=== PATIENT | female | born 1980 | race Caucasian/White ===

== ENCOUNTER 2019-09-26 10:56 | Emergency (ER) | payer MEDICAID ==
[2019-09-26] MEDS ORDERED: Alum Hydrox/Mag Hydrox/Simeth 30 ML, Lidocaine 2% 15 ML PO STA ×2 (12:04)
--- NOTE | 2019-09-26 12:11 | EDM.PDOC ---
ED HPI GENERAL MEDICAL PROBLEM - General Chief Complaint: Chest Pain Stated Complaint: CHEST PAINS Time Seen by Provider: 09/26/19 11:39 Source of Information: Reports: Patient History Limitations: Reports: No Limitations - History of Present Illness INITIAL COMMENTS - FREE TEXT/NARRATIVE: Ms. Donato is a very pleasant 39-year-old woman with a past medical history significant for PTSD and migraines, who now presents to the ED stating that she developed midline lower chest and epigastric pain yesterday afternoon while lounging. She describes the pain as "tender" and stabbing, shooting". The pain does not radiate, and she has not identified any modifiers. She was able to sleep overnight, but the pain was still there this morning. She then took her daughter to school, and developed right jaw pain, dyspnea, weakness, and dizziness. Here in the ED, the patient is found to be hemodynamically stable, afebrile, saturating 99% on room air The patient states that she has had chest pain in the past, but the character was different. She reports no limits to exertion, such as chest pain or dyspnea. The patient did not take any [id number] or home remedies either yesterday or today. The patient states that she had a cluster of migraines about 2 weeks ago, otherwise, she has not had any recent fever, chills, cough, dyspnea, chest pain , palpitations, nausea, vomiting, constipation, diarrhea, abdominal pain, urinary symptoms, recent weight gain or weight loss, recent bloody bowel movements or black bowel movements, recent joint aches, headaches, or rashes. The patient's PCP is ANDRES Jackson. She did not receive an influenza vaccine this season, but agreed to receive one here today. Middle Chest Pain Score (Numeric/FACES): 5 - Related Data Allergies Allergy/AdvReac Type Severity Reaction Status Date / Time codeine Allergy Cannot Verified 09/26/19 11:35 Remember metronidazole [From Flagyl] Allergy Cannot Verified 09/26/19 11:35 Remember ranitidine Allergy Cannot Verified 09/26/19 11:35 Remember Home Meds: Home Meds ALPRAZolam [Xanax] 0.5 mg PO BID PRN 09/26/19 [History] Acetaminophen/HYDROcodone [Glencoe 325-5 MG] 1 - 2 tab PO Q6H PRN #20 tablet 09/26 [Rx] Escitalopram Oxalate 5 mg PO DAILY 09/26/19 [History] Ondansetron [Zofran ODT] 1 tab PO Q8H PRN #10 tab.dis 09/26/19 [Rx] Prazosin [Minpress] 1 mg PO BEDTIME 09/26/19 [History] Past Medical History Neurological History: Reports: Migraines Psychiatric History: Reports: PTSD - Past Surgical History HEENT Surgical History: Reports: Oral Surgery (wisdom teeth extraction, oral mucocele excision), Tonsillectomy GI Surgical History: Reports: Hernia, Abdominal (periumbilical) Musculoskeletal Surgical History: Reports: Arthroscopic Knee (right, ACL repair) , Shoulder Surgery (right, open) Social & Family History - Family History Family Medical History: Noncontributory - Tobacco Use Smoking Status *Q: Current Every Day Smoker Years of Tobacco use: 21 Packs/Tins Daily: 1 Packs/Tins Daily Comment: Down from 1.5 ppd - Caffeine Use Caffeine Use: Reports: Coffee - Alcohol Use Alcohol Use History: Yes Alcohol Use Frequency: Socially - Recreational Drug Use Recreational Drug Use: Yes Drug Use in Last 12 Months: Yes Recreational Drug Type: Reports: Marijuana/Hashish (last smoked late Jul 2019) - Living Situation & Occupation Living situation: Reports: , with Family (Son) Occupation: Employed (clinical data assistant) ED ROS GENERAL - Review of Systems Review Of Systems: Comprehensive ROS is negative, except as noted in HPI. ED EXAM, GI/ABD - Physical Exam Exam: See Below Exam Limited By: No Limitations General Appearance: Alert, WD/WN, No Apparent Distress Eyes: Bilateral: Normal Appearance, EOMI Ears: Normal External Exam, Hearing Grossly Normal Nose: Normal Inspection Throat/Mouth: Normal Inspection, Normal Lips, Normal Voice, No Airway Compromise Head: Atraumatic, Normocephalic Neck: Normal Inspection, Full Range of Motion Respiratory/Chest: No Respiratory Distress, Lungs Clear, Normal Breath Sounds, No Accessory Muscle Use, Chest Non-Tender (including the sternum) Cardiovascular: Normal Peripheral Pulses, Regular Rate, Rhythm, No Edema, No Gallop, No JVD, No Murmur, No Rub GI/Abdominal Exam: Normal Bowel Sounds, Soft, No Organomegaly, No Distention, No Abnormal Bruit, No Mass, Tender (Reproducible to the epigastrium only. Nontender elsewhere.) (Female) Exam: Deferred Rectal (Female) Exam: Deferred Back Exam: Normal Inspection, Full Range of Motion. No: CVA Tenderness (L), CVA Tenderness (R) Extremities: Normal Inspection, Normal Range of Motion, No Pedal Edema, Normal Capillary Refill Neurological: Alert, Oriented, Normal Cognition, No Motor/Sensory Deficits Psychiatric: Normal Affect Skin Exam: Warm, Dry, Intact, Normal Color, No Rash EKG INTERPRETATION EKG Date: 09/26/19 Time: 12:58 Rhythm: Other (Sinus bradycardia) Rate (Beats/Min): 59 [place]: Normal P-Wave: Enlarged (LAE) QRS: Normal ST-T: Normal QT: Normal Comparison: No Change (05/19/2018) Course - Vital Signs Last Recorded V/S: Last Vital Signs Temp 36.4 C 09/26/19 11:32 Pulse 80 09/26/19 11:32 Resp 13 09/26/19 11:32 BP 110/69 09/26/19 11:32 Pulse Ox 99 09/26/19 11:32 - Orders/Labs/Meds Orders: Active Orders 24 hr Category Date Time Status EKG Documentation Completion [RC] STAT Care 09/26/19 12:22 Active Influenza Vaccine Charge [RC] .DISCHARGE Care 09/26/19 12:05 Active Sodium Chloride 0.9% [Normal Saline] 1,000 ml Med 09/26/19 12:30 Active IV ASDIRECTED Sodium Chloride 0.9% [Saline Flush] Med 09/26/19 12:58 Active 10 ml FLUSH ONETIME PRN Medication Orders Sodium Chloride (Normal Saline) 1,000 mls @ 150 mls/hr IV ASDIRECTED JAMEL Last Admin: 09/26/19 12:38 Dose: 150 mls/hr Sodium Chloride (Saline Flush) 10 ml FLUSH ONETIME PRN PRN Reason: IV FLUSH Last Admin: 09/26/19 14:00 Dose: 10 ml Labs: Laboratory Tests 09/26/19 09/26/19 09/26/19 Range/Units 12:30 12:30 12:30 WBC 6.73 (3.98-10.04) K/mm3 RBC 4.67 (3.98-5.22) M/mm3 Hgb 14.3 (11.2-15.7) gm/dl Hct 42.0 (34.1-44.9) % MCV 89.9 (79.4-94.8) fl MCH 30.6 (25.6-32.2) pg MCHC 34.0 (32.2-35.5) g/dl RDW Std Deviation 40.2 (36.4-46.3) fL Plt Count 176 L (182-369) K/mm3 MPV 9.0 L (9.4-12.3) fl Neutrophils % (Manual) 70 H (40-60) % Band Neutrophils % 0 (0-10) % Lymphocytes % (Manual) 22 (20-40) % Atypical Lymphs % 0 % Monocytes % (Manual) 7 (2-10) % Eosinophils % (Manual) 1 (0.7-5.8) % Basophils % (Manual) 0 L (0.1-1.2) Platelet Estimate Adequate RBC Morph Comment Normal D-Dimer, Quantitative 0.36 (0.19-0.50) mg/L Sodium 142 (136-145) mEq/L Potassium 3.9 (3.5-5.1) mEq/L Chloride 105 (98-107) mEq/L Carbon Dioxide 27 (21-32) mEq/L Anion Gap 13.9 (5-15) BUN 9 (7-18) mg/dL Creatinine 0.8 (0.55-1.02) mg/dL Est Cr Clr Drug Dosing 97.13 mL/min Estimated GFR (MDRD) > 60 (>60) mL/min BUN/Creatinine Ratio 11.3 L (14-18) Glucose 101 (74-106) mg/dL Calcium 9.0 (8.5-10.1) mg/dL Total Bilirubin 1.7 H (0.2-1.0) mg/dL AST 17 (15-37) U/L ALT 34 (14-59) U/L Alkaline Phosphatase 40 L (46-116) U/L Total Protein 6.7 (6.4-8.2) g/dl Albumin 3.7 (3.4-5.0) g/dl Globulin 3.0 gm/dL Albumin/Globulin Ratio 1.2 (1-2) Lipase 99 (73-393) U/L Meds: Medications Generic Name Dose Route Start Last Admin Trade Name Freq PRN Reason Stop Dose Admin Sodium Chloride 1,000 mls @ 150 mls/hr 09/26/19 12:30 09/26/19 12:38 Normal Saline IV 150 mls/hr ASDIRECTED JAMEL Administration Sodium Chloride 10 ml 09/26/19 12:58 09/26/19 14:00 Saline Flush FLUSH 10 ml ONETIME PRN Administration IV FLUSH Discontinued Medications Generic Name Dose Route Start Last Admin Trade Name Fawad PRN Reason Stop Dose Admin Al Hydroxide/Mg Hydroxide 30 0 ml 09/26/19 12:04 09/26/19 12:13 ml/ Lidocaine HCl 15 ml PO 09/26/19 12:05 45 ml ONETIME STA Administration Diatrizoate Meglum/Diatrizoate Sod 120 ml 09/26/19 12:58 09/26/19 14:00 Gastrografin 37% PO 09/26/19 12:59 90 ml ONETIME ONE Administration Famotidine 40 mg 09/26/19 14:46 09/26/19 15:02 Pepcid PO 09/26/19 14:47 40 mg ONETIME STA Administration Hydromorphone HCl 0.5 mg 09/26/19 12:28 09/26/19 12:38 Dilaudid IVPUSH 09/26/19 12:29 0.5 mg ONETIME ONE Administration Influenza Virus Vaccine 60 mcg 09/26/19 12:15 09/26/19 12:38 Fluzone Quad [id number] Syringe IM 09/26/19 12:16 60 mcg .ONCE ONE Administration Iopamidol 100 ml 09/26/19 12:58 09/26/19 14:00 Isovue-300 (61%) IVPUSH 09/26/19 12:59 100 ml ONETIME ONE Administration Ondansetron HCl 4 mg 09/26/19 12:28 09/26/19 12:38 Zofran IVPUSH 09/26/19 12:29 4 mg ONETIME ONE Administration - Re-Assessments/Exams Free Text/Narrative Re-Assessment/Exam: 09/26/19 12:06 Although the patient's initial complaint was of chest pain, it also includes epigastric pain, and on examination, she has reproducible tenderness to the epigastrium, with no tenderness elsewhere. My greatest concern is of pancreatitis. I have ordered blood work that includes a lipase level, but I will hold off on a CT scan until I see the patient's response to a GI cocktail. Her history is not inconsistent with GERD, although GERD should not cause tenderness, but if she gets relief with a GI cocktail, and her lipase is not elevated, then I do not see an indication for a CT scan, and we can save the patient unnecessary radiation. 09/26/19 12:27 The patient states that the GI cocktail may have given her minor relief, but she is not certain. We will therefore proceed with a CT scan of her abdomen and pelvis with oral and IV contrast. 09/26/19 13:47 2 view chest x-ray is read by Dr. Diaz as: 1. Nothing acute is seen on 2-view chest x-ray. The patient's CBC is remarkable for platelets depressed at 176,000, and is otherwise unremarkable. Her CMP is remarkable for a total bilirubin elevated at 1.7, and is otherwise unremarkable. Her lipase is within normal limits at 99. Her D-dimer is within normal limits at 0.36. 09/26/19 14:44 CT of the abdomen and pelvis with oral and IV contrast as read by Dr. Diaz as: 1. 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 2. Free fluid within the cul-de-sac most likely representing follicle rupture or nonvisualized cyst rupture. 3. Nothing acute is otherwise seen on CT study of the abdomen and pelvis. 09/26/19 16:07 Test results discussed with the patient. As above, today's work-up is unremarkable. Reviewing her prior labs, I see that her total bilirubin is chronically elevated, consistent with Gilbert syndrome. She does not have pancreatitis. Her pain may be due to GERD, although it could be biliary colic, as well. I will start her on famotidine and discharge her home with prescriptions for [place]coe and Zofran, along with the recommendation that she eat as low-fat a diet as she can tolerate. I will refer her to the Surgeon for further evaluation. Departure - Departure Time of Disposition: 16:08 Disposition: Home, Self-Care 01 Condition: Good Clinical Impression: Epigastric abdominal pain of unknown etiology, Gilbert syndrome - Discharge Information *PRESCRIPTION DRUG MONITORING PROGRAM REVIEWED*: Not Applicable *COPY OF PRESCRIPTION DRUG MONITORING REPORT IN PATIENT DARREN: Not Applicable Prescriptions: Acetaminophen/HYDROcodone [G[place]coe 325-5 MG] 1 - 2 tab PO Q6H PRN #20 tablet PRN Reason: Pain (Severe 7-10) Ondansetron [Zofran ODT] 1 tab PO Q8H PRN #10 tab.dis PRN Reason: Nausea/Vomiting Referrals: Nehal Harris PA-C [Primary Care Provider] - Dewey Mckee MD [Physician] - Forms: ED Department Discharge Additional Instructions: You were seen in the emergency room for lower chest and upper midline abdominal pain that began yesterday afternoon, radiating to your jaw, along with shortness of breath, weakness, and dizziness. Work-up in the ER included blood work, a chest x-ray, a CT of your abdomen and pelvis with oral and IV contrast, and an ECG. Your total bilirubin was found to be elevated at 1.7, and your platelets mildly depressed at 176. Otherwise, your work-up was entirely unremarkable. Based on your history, physical exam, and ER tests, your pain is due to either GERD (acid reflux) or biliary colic (gallbladder pain). Your elevated total bilirubin is likely due to Gilbert syndrome. Treatment is necessary. We recommend the followin. Begin taking [id number] famotidine (Pepcid), 1 tablet twice a day. 2. Eat as low-fat a diet as possible. 3. Follow-up with the Surgeon Dr. Dewey Turner at the next available appointment for further evaluation, that will likely include an ultrasound of your upper right abdomen and a HIDA scan. You have been prescribed the narcotic pain reliever Glencoe and the anti-nausea medicine Zofran. You may take 1 to 2 tablets of Glencoe up to every 6 hours, as needed for pain. If you take Glencoe, do not drive or operate heavy machinery for 12 hours afterwards. Glencoe may cause constipation, so consider taking a stool softener. You may dissolve 1 tablet of Zofran on your tongue up to every 8 hours, as needed for nausea/vomiting. Stay adequately hydrated. If any other problems, please do not hesitate to return to the ER. Sepsis Event Note - Evaluation Sepsis Screening Result: No Definite Risk - Focused Exam Vital Signs: Vital Signs Temp Pulse Resp BP Pulse Ox 09/26/19 11:32 36.4 C 80 13 110/69 99 Date Exam was Performed: 09/26/19 Time Exam was Performed: 16:09 - My Orders Last 24 Hours: My Active Orders 09/26/19 12:05 Influenza Vaccine Charge [RC] .DISCHARGE 09/26/19 12:22 EKG Documentation Completion [RC] STAT 09/26/19 12:30 Sodium Chloride 0.9% [Normal Saline] 1,000 ml IV ASDIRECTED 09/26/19 12:58 Sodium Chloride 0.9% [Saline Flush] 10 ml FLUSH ONETIME PRN - Assessment/Plan Last 24 Hours: My Active Orders 09/26/19 12:05 Influenza Vaccine Charge [RC] .DISCHARGE 09/26/19 12:22 EKG Documentation Completion [RC] STAT 09/26/19 12:30 Sodium Chloride 0.9% [Normal Saline] 1,000 ml IV ASDIRECTED 09/26/19 12:58 Sodium Chloride 0.9% [Saline Flush] 10 ml FLUSH ONETIME PRN
[2019-09-26] MEDS ORDERED: FLU Vacc QS2019-20(6MOS+)/PF 60 MCG/0.5 ML SYRINGE IM ONE (12:15)
[2019-09-26] MEDS ORDERED: HYDROmorphone 0.5 MG/0.5 ML Syringe IVPUSH ONE (12:28)
[2019-09-26] MEDS ORDERED: Ondansetron 4 MG/2 ML SDV IVPUSH ONE (12:28)
[2019-09-26] MEDS ORDERED: Sodium Chloride 0.9% 1,000 ML IV SCH (12:30)
[2019-09-26] MEDS ORDERED: Iopamidol 612 MG/ML 100 ML Bottle IVPUSH ONE (12:58)
[2019-09-26] MEDS ORDERED: Sodium Chloride 0.9% 10 ML Syringe FLUSH PRN (12:58)
[2019-09-26] MEDS ORDERED: Diatrizoate Meglumine/Diatrizoate Sodium 37% 120 ML Bottle PO ONE (12:58)
--- NOTE | 2019-09-26 13:40 | CR ---
Chest: Two views of the chest were obtained. Comparison: Prior chest x-ray of 05/19/18. Heart size and mediastinum are normal. Lungs are clear with no acute parenchymal change. Bony structures appear within normal limits. Impression: 1. Nothing acute is seen on two-view chest x-ray. Diagnostic code #1 This report was dictated in [place] Standard Time
--- NOTE | 2019-09-26 14:30 | CT ---
CT abdomen and pelvis Technique: Multiple axial sections were obtained from above the dome of the diaphragm inferiorly through the pubic symphysis. Intravenous contrast and oral contrast was utilized. Comparison: No prior CT abdomen or pelvis exam is available. Findings: Visualized lung bases show nothing acute. Liver contains no focal parenchymal abnormality. Spleen appears within normal limits. Adrenal glands show no nodule. Kidneys show symmetric contrast enhancement without hydronephrosis. Small nonobstructing calculus is noted within the right kidney. Pancreas is normal. Gallbladder contains no calcified gallstones. Aorta shows no aneurysm. No retroperitoneal adenopathy or mesenteric abnormalities are seen. Appendix is seen which is normal in size. No pelvic mass or adenopathy is seen. Free fluid is seen within the cul-de-sac possibly due to follicle rupture or nonvisualized cyst rupture. Delayed images show contrast within the bladder. IUD is present within the uterus. Bone window settings were reviewed which show disc space narrowing and minimal spondylolisthesis at L3-L4. Spondylolisthesis is due to bilateral spondylitic defects. Impression: 1. 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 2. Free fluid within the cul-de-sac most likely representing follicle rupture or nonvisualized cyst rupture. 3. Nothing acute is otherwise seen on CT study of the abdomen and pelvis. Diagnostic code #2 This report was dictated in [place] Standard Time
[2019-09-26] MEDS ORDERED: Famotidine 20 MG Tab PO STA (14:46)
== END 2019-09-26 16:53 | disposition home or self-care (01) ==
LOC: JD.ED 10:56
DX: E80.4 Gilbert syndrome (principal); R10.13 Epigastric pain; F17.210 Nicotine dependence, cigarettes, uncomplicated; Z88.5 Allergy status to narcotic agent; Z88.8 Allergy status to other drugs, medicaments and biological substances; Z79.899 Other long term (current) drug therapy
CPT/HCPCS: 36415; 71046; 74177; 80053; 83690; 85007; 85027; 85379; 90471; 90686; 93005; 96361; 96374; 96375; 99285; A9270; J1170; J2405; J7030; Q9963; Q9967; 93010; 99284; G0008

== ENCOUNTER 2021-12-16 01:51 | Emergency (ER) | payer MEDICAID ==
[2021-12-16] MEDS ORDERED: HYDROmorphone 1 MG/ML Syringe IVPUSH STA (02:20)
[2021-12-16] MEDS ORDERED: Ondansetron 4 MG/2 ML SDV IVPUSH ONE (02:20)
[2021-12-16] MEDS ORDERED: Sodium Chloride 0.9% 1,000 ML IV SCH (02:30)
== END 2021-12-16 05:52 | disposition home or self-care (01) ==
LOC: JD.ED 01:51
DX: R10.84 Generalized abdominal pain (principal); R11.2 Nausea with vomiting, unspecified; F17.210 Nicotine dependence, cigarettes, uncomplicated; Z86.16 Personal history of COVID-19; Z79.899 Other long term (current) drug therapy; Z88.5 Allergy status to narcotic agent; Z88.1 Allergy status to other antibiotic agents; Z88.8 Allergy status to other drugs, medicaments and biological substances
CPT/HCPCS: 36415; 74177; 80053; 81001; 81025; 83690; 85007; 85027; 96361; 96374; 96375; 99284; J1170; J2405; J7030

== ENCOUNTER 2021-12-17 08:16 | Emergency (ER) | payer MEDICAID ==
[2021-12-17] MEDS ORDERED: Ondansetron 4 MG/2 ML SDV IVPUSH ONE (08:46)
[2021-12-17] MEDS ORDERED: Sodium Chloride 0.9% 1,000 ML IV ONE (08:46)
[2021-12-17] MEDS ORDERED: Hyoscyamine 0.125 MG Tab.SL SL ONE (08:48)
[2021-12-17] MEDS ORDERED: Dicyclomine 10 MG Cap PO ONE (10:00)
[2021-12-17] MEDS ORDERED: Metoclopramide 10 MG/2 ML SDV IVPUSH ONE (10:20)
== END 2021-12-17 12:00 | disposition home or self-care (01) ==
LOC: JD.ED 08:16
DX: K52.9 Noninfective gastroenteritis and colitis, unspecified (principal); Z88.5 Allergy status to narcotic agent; Z88.8 Allergy status to other drugs, medicaments and biological substances; Z79.899 Other long term (current) drug therapy; Z86.16 Personal history of COVID-19
CPT/HCPCS: 36415; 80053; 81003; 83735; 85025; 86140; 96361; 96374; 96375; 99284; A9270; J2405; J2765; J7030; 99283

== ENCOUNTER 2023-04-24 20:27 | Emergency (ER) | payer BC, MEDICAID ==
[2023-04-24] MEDS ORDERED: Aspirin 81 MG Tab.Chew PO ONE (20:47)
[2023-04-24 20:56] LABS: BASOPHILS PERCENT AUTO 0.5 % (0.0-1.0); EOSINOPHILS ABSOLUTE AUTO 0.1 K/mm3 (0.0-0.4); EOSINOPHILS PERCENT AUTO 1.9 % (0.0-6.0); HEMATOCRIT 37.2 % (37.0-47.0); HEMOGLOBIN 13.1 gm/dl (12.0-16.0); IMMATURE GRAN ABSOLUTE AUTO 0.02 K/mm3 (0.00-0.05); IMMATURE GRAN PERCENT AUTO 0.3 % (0.0-0.4); LYMPHOCYTES ABSOLUTE AUTO 2.1 K/mm3 (1.0-4.8); LYMPHOCYTES PERCENT AUTO 35.8 % (24.0-44.0); MEAN CORPUSCULAR HEMOGLOBIN 31.6 pg (28.0-32.0); MEAN CORPUSCULAR HGB CONC 35.2 g/dl (32.0-36.0); MEAN CORPUSCULAR VOLUME 89.6 fl (83.0-99.0); MEAN PLATELET VOLUME 9.1 fl (9.4-12.3); MONOCYTES ABSOLUTE AUTO 0.4 K/mm3 (0.0-0.8); MONOCYTES PERCENT AUTO 7.4 % (0.0-8.0); NEUTROPHILS ABSOLUTE AUTO 3.2 K/mm3 (1.8-7.7); NEUTROPHILS PERCENT AUTO 54.1 % (41.0-71.0); PLATELET COUNT,PLT 187 K/mm3 (150-400); RED BLOOD CELL COUNT 4.15 M/mm3 (4.10-5.30); WHITE BLOOD CELL COUNT,WBC 5.83 K/mm3 (3.9-11.3)
[2023-04-24] MEDS ORDERED: LORazepam 2 MG/ML SDV IVPUSH ONE (21:14)
[2023-04-24 21:15] LABS: INR 0.93
[2023-04-24 21:22] LABS: A/G RATIO 1.2 (1-2); ALBUMIN 3.6 g/dl (3.4-5.0); ANION GAP 13.1 (5-15); BILIRUBIN TOTAL 0.7 mg/dL (0.2-1.0); CALCIUM 8.6 mg/dL (8.5-10.1); CREATININE 0.7 mg/dL (0.55-1.02); EST CRCL DRUG DOSING (CG) 107.77 mL/min; POTASSIUM,K 3.1 mEq/L (3.5-5.1); PROTEIN TOTAL,TP 6.6 g/dl (6.4-8.2)
[2023-04-24] MEDS ORDERED: LORazepam 1 MG Tab PO ONE (21:24)
[2023-04-24] MEDS ORDERED: Potassium Chloride 20 MEQ Tab.ER PO ONE (21:45)
[2023-04-24] MEDS ORDERED: Acetaminophen/HYDROcodone 325-5 MG Tab PO ONE (21:49)
== END 2023-04-24 23:00 | disposition home or self-care (01) ==
LOC: JD.ED 20:27
DX: R07.9 Chest pain, unspecified (principal); F17.210 Nicotine dependence, cigarettes, uncomplicated; Z86.16 Personal history of COVID-19; Z79.899 Other long term (current) drug therapy; Z88.5 Allergy status to narcotic agent; Z88.8 Allergy status to other drugs, medicaments and biological substances
CPT/HCPCS: 36415; 71045; 71045-26; 80053; 84484; 85025; 85379; 85610; 93005; 93010; 99284; 99285; A9270-GY